=== PATIENT | female | born 1980 | race Asian ===

== ENCOUNTER 2016-10-26 11:54 | Outpatient (CLI) | payer BC | END 2016-10-26 12:01 | disposition short-term general hospital (02) | LOC: AMB 11:54 | DX: R41.82 Altered mental status, unspecified (principal) | CPT/HCPCS: A0425; A0427 ==

== ENCOUNTER 2016-10-26 12:07 | Emergency (ER) | payer BC ==
[~2016-10-26] VITALS: Ht 175.3 cm; Wt 81.6 kg
[2016-10-26 12:50] LABS: PLATELET COUNT 224 K/uL (152-353)
[2016-10-26 13:17] LABS: POTASSIUM 3.6 mmol/L (3.6-5.2); SODIUM 136 mmol/L (136-145)
== END 2016-10-26 19:52 | disposition other institution (70) ==
LOC: ED 12:07
PROVIDERS: Emergency Medicine
DX: R41.82 Altered mental status, unspecified (principal)
CPT/HCPCS: 36415; 80053; 80307; 80320; 80329; 81000; 85027; 96360; 99285; G0479